=== PATIENT | female | born 1990 | race African-American/Black ===

== ENCOUNTER 2022-09-12 21:52 | Emergency (ER) | payer OTHER ==
[~2022-09-12] VITALS: Ht 172.7 cm; Wt 68.0 kg
[2022-09-12 22:01] VITALS: BP 120/90
--- NOTE | 2022-09-12 22:04 | NUR ---
TO LOBBY A/W BED AMBULATORY
--- NOTE | 2022-09-13 00:34 | NUR ---
PT TAKEN TO BED 2
--- NOTE | 2022-09-13 00:35 | NUR ---
Patient resting in bed, A/Ox4, chest rise and fall symmetrical, no s/s of distress.
[2022-09-13 00:39] VITALS: BP 133/88
[2022-09-13] MEDS ORDERED: ALBUTEROL 0.083% 2.5 MG/3 ML NEBU INH ONE (00:50)
[2022-09-13] MEDS ORDERED: predniSONE 20 MG TAB PO ONE (00:50)
--- NOTE | 2022-09-13 00:52 | NUR ---
Dr. Molina at bedside with patient.
[2022-09-13] MEDS ORDERED: ALBU0.0912 INH (01:38)
[2022-09-13] MEDS ORDERED: PRED20TA6 PO (01:38)
[2022-09-13] MEDS ORDERED: PRON INH (01:38)
--- NOTE | 2022-09-13 01:49 | NUR ---
d/c with VSS. d/ ceducation given. opportunity to ask questions given and answered. rx of prednisone and albuterol given.
== END 2022-09-13 01:49 | disposition home or self-care (01) ==
LOC: MED 21:52
DX: J40 Bronchitis, not specified as acute or chronic (principal); Z20.822 Contact with and (suspected) exposure to COVID-19; R06.2 Wheezing; R06.02 Shortness of breath; R07.9 Chest pain, unspecified; Z79.899 Other long term (current) drug therapy
CPT/HCPCS: 87426; 87804; 94760; 99283; J7512; J7613